=== PATIENT | male | born 1970 | race Caucasian/White ===

== ENCOUNTER 2020-03-06 06:58 | Outpatient (CLI) | payer OTHER, SELFPAY ==
[2020-03-06 07:25] LABS: Potassium 4.4 mmol/L (3.4-5.0)
[2020-03-06 07:36] LABS: Alanine Aminotransferase 52 U/L (4-50); Albumin Level 4.8 g/dL (3.5-5.1); Alkaline Phosphatase 59 U/L (38-126); Aspartate Amino Transferase 35 U/L (17-59); Blood Urea Nitrogen 20 mg/dL (9-20); Carbon Dioxide 29 mmol/L (22-30); Chloride 98 mmol/L (98-107); Estimated Glomerular Filt Rate > 60; Glucose 106 mg/dL (75-110); Sodium 134 mmol/L (137-145)
== END 2020-03-06 06:59 | disposition home or self-care (01) ==
PROVIDERS: PCP Family Medicine; Visit Provider Family Medicine
DX: I10 Essential (primary) hypertension (principal)
CPT/HCPCS: 36415; 80053

== ENCOUNTER 2020-07-12 23:54 | Observation (INO) | payer OTHER, SELFPAY ==
--- NOTE | ~2020-07-12 | XR_ITS ---
EXAMINATION: XR chest 2V DATE: 07/13/2020 03:11 INDICATION: Left chest pain. TECHNIQUE: Frontal and lateral views of the chest were obtained. COMPARISON: None. FINDINGS: The chest demonstrates clear lungs without pneumonia, pleural effusion, or pneumothorax. Th e heart size is normal. There is mild chronic anterior wedging of a midthoracic vertebral body. IMPRESSION: 1. No acute cardiopulmonary disease. Reviewed, dictated and finalized at location A. OPERATOR
[2020-07-12 23:58] VITALS: BP 186/86; PULSE 92; RESP 18; TEMP 36.7; O2SAT 100
[2020-07-13] VITALS (23 sets, daily range): BP systolic 124–175; BP diastolic 75–103; PULSE 63–90; RESP 12–24; TEMP 36.6–36.7; O2SAT 96–100
--- NOTE | 2020-07-13 00:02 | ECG_ITS ---
Measurements Intervals [place] Rate: 93 P: 50 NE: 160 QRS: 70 QRSD: 113 T: 7 QT: 343 QTc: 427 Interpretive Statements SINUS RHYTHM BORDERLINE ST-T WAVE ABNORMALITY- INFERIOR LEADS BORDERLINE ECG Electronically Signed On 07-13-2020 8:27:47 [employer] by Alphonso Serna D.O.
[2020-07-13 00:23] LABS: Basophils Absolute Auto 0.1 K/mm3 (0.0-0.1); Basophils Percent Auto 0.8 % (0.2-1.2); Eosinophils Absolute Auto 0.2 K/mm3 (0-0.3); Eosinophils Percent Auto 3.1 % (0-4.4); Hematocrit 45.2 % (42.0-52.0); Hemoglobin 16.5 g/dL (14.0-18.0); Immature Granulocyte Absolute 0.01 K/mm3 (0.00-0.031); Immature Granulocyte Percent A 0.1 % (0-0.5); Lymphocytes Absolute Auto 2.77 K/mm3 (0.9-3.2); Mean Corpuscular HGB Conc 36.5 g/dl (32-36); Mean Corpuscular Hemoglobin 31.9 pg (26-34); Mean Corpuscular Volume 87.4 fl (80-100); Mean Platelet Volume 10.3 fl (7.4-10.4); Monocytes Absolute Auto 0.7 K/mm3 (0.1-0.6); Monocytes Percent Auto 8.7 % (2.6-8.5); Neutrophils Absolute Auto 3.9 K/mm3 (1.3-6.7); Neutrophils Percent Auto 51.3 % (45.5-73.1); Platelet Count Result 216 k/mm3 (150-375); Red Blood Count 5.17 M/mm3 (4.6-6.20); Red Cell Distribution Width 11.6 % (11.5-14.5); White Blood Count 7.7 K/mm3 (4.5-10.0)
[2020-07-13 00:34] LABS: Anion Gap 11 mmol/L (8-16); Blood Urea Nitrogen 18 mg/dL (9-20); Carbon Dioxide 27 mmol/L (22-30); Chloride 101 mmol/L (98-107); Estimated CRCL calculation 74 ml/min; Estimated Glomerular Filt Rate > 60; Glucose 120 mg/dL (75-110); Sodium 139 mmol/L (137-145)
[2020-07-13 00:46] LABS: Troponin I < 0.012 ng/mL (0.000-0.034)
[2020-07-13 00:50] LABS: INR 0.9; Prothrombin Time 13.1 Seconds (11.1-14.7)
[2020-07-13] MEDS: ASPIRIN 81 MG CHEWABLE TABLET 324 MG PO (02:50)
--- NOTE | 2020-07-13 03:27 | ED.CHESTPAIN ---
HPI - Chest Pain General Chief Complaint: Chest Pain Stated Complaint: chest pain Time Seen by Provider: 07/13/20 02:55 Source: patient Mode of arrival: ambulatory Limitations: no limitations History of Present Illness HPI narrative: This patient is a 50 year old male with history of hypertension and family history of CAD who presents for evaluation of left chest pain. He developed left chest pain last night. His pain has gradually gotten worse. He reported it radiated to his neck and he has associated nausea. He denies sob, cough or fever. He had a stress test performed last due to not feeling right and hypertensive after working out last week. He wasn't having chest pain at that time of his work out. Related Data Home Medications Medication Instructions Recorded Confirmed fluticasone propionate 50 2 spray NASAL DAILY 09/19/19 07/06/20 mcg/actuation nasal spray,suspension loratadine 10 mg tablet 10 mg PO DAILY 09/19/19 07/06/20 mometasone 0.1 % topical cream 1 applic TOPICAL DAILY 09/19/19 07/06/20 Allergies Allergy/AdvReac Type Severity Reaction Status Date / Time No Known Allergies Allergy Unverified 03/27/20 08:03 Review of Systems Review of Systems: All systems reviewed & are unremarkable except as noted in HPI and below Constitutional: Constitutional: Denies chills and Denies fever(s) Cardiovascular: Cardiovascular: Reports chest pain Respiratory: Respiratory: Denies cough and Reports dyspnea Gastrointestinal: Gastrointestinal: Denies abdominal pain, Reports nausea and Denies vomiting [facility] Family History Family History (Updated 03/25/16 @ 23:19 by DOCTOR UNKNOWN) Father Hypertension Family history of diabetes mellitus in first degree relative Mother Hypertension Family history of diabetes mellitus in first degree relative Family history of coronary artery disease Social History Social History (Updated 07/06/20 @ 15:10 by Tami Collins [facility]) Smoking status: Never smoker Second hand tobacco smoke exposure: No Alcohol intake: never Substance use: never Substance use type: does not use Gender identity (if verbalized by the patient): Male Exam Const: General: no acute distress and alert Orientation/consciousness: patient oriented x3 HENMT: Head: atraumatic Face and sinus: face symmetric Neck: Neck: no lymphadenopathy Chest: Chest palpation & inspection: normal inspection of the chest Resp: Effort & Inspection: normal respiratory effort and no retractions Auscultation: clear to auscultation bilaterally Cardio: Rate: regular rate Rhythm: regular rhythm Heart sounds: no murmurs GI: GI Palp: Yes Soft to palpation, No Tenderness to palpation present (GI), No Guarding due to palpation present (GI) and No Rigid due to palpation Auscultation: normal bowel sounds Skin: General skin exam: normal color Rashes: no rashes Neuro: General: patient oriented x3 and moves all extremities Extrem: General: normal to inspection Psych: Mental Status: mental status grossly normal Affect: normal affect Course Reevaluation(s) Reevaluation #1: Patient states his chest pain resolved after 2 nitro. He is agreeable to stay in hospital in chest pain center Date: 07/13/20 Time: 04:38 Consultations Consultation #1: I spoke with Dr. Greer and she recommends patient be admitted to chest pain center. Date: 07/13/20 Time: 04:39 Vital Signs Vital signs: Vital Signs Temperature 98.1 F 07/12/20 23:58 Pulse Rate 92 07/12/20 23:58 Respiratory Rate 18 07/12/20 23:58 Blood Pressure 186/86 H 07/12/20 23:58 Pulse Oximetry 100 07/12/20 23:58 Temperature 98.1 F 07/13/20 06:43 Pulse Rate 74 07/13/20 06:50 Respiratory Rate 15 07/13/20 06:43 Blood Pressure 146/96 H 07/13/20 06:43 Pulse Oximetry 100 07/13/20 06:43 MDM - Chest Pain Lab Data Attestation: I reviewed the patient's lab results. Result diagrams: 07/13/20 00:06
[2020-07-13] MEDS: NITROGLYCERIN SL 0.4 MG TABLET SUBLINGUAL (03:33)
[2020-07-13 03:47] LABS: D Dimer 0.44 ug/mL (<0.48)
[2020-07-13 04:08] LABS: Troponin I < 0.012 ng/mL (0.000-0.034)
[2020-07-13 07:06] LABS: Troponin I < 0.012 ng/mL (0.000-0.034)
--- NOTE | 2020-07-13 09:01 | PM.IMHP ---
H&P: HPI History of Present Illness Date/Time: 07/13/20 09:01 Chief complaint: chest pain Narrative: Jamison Luna is a 50 year old male with a history of intermittent chest pain admitted last evening from the emergency room to the chest Pain Center. This is a gentleman who has no previous history of coronary artery disease but does have a longstanding history of hypertension. He is managed by his PCP, Dr. Pastrana. He states that he noticed episodes intermittent chest pain for about 6 weeks or so now. He had will have episodes of substernal tightness that seems to come and go largely in a non predictable fashion he does however have some occasional episodes of this that occur with exertion. He is an active gentleman who exercises regularly for fitness and attends space spinning classes and likes to ride his bicycle for exercise. He noticed in May that his ability to sustain activity and his spinning class declined deferred the reasons of generalized weakness shortness of breath and on at least a couple of occasions with some substernal chest tightness. His PCP referred him to a outpatient exercise stress test last week which was just done on 07/06/2020. The stress test was electrocardiographically negative. The stress test was done without any imaging. His resting 12 lead ECG appears to be normal. After being seen in the emergency room yesterday his symptoms were alleviated with nitro lingual tablets. His troponins have remained negative x3 sets. He does have a family history of prevalent ischemic heart disease. Review of Systems Constitutional: Constitutional: Reports no additional constitutional complaints Eyes: Eyes: Reports no additional eye complaints ENT: Reports system reviewed and no additional complaints, except as documented Cardiovascular: Cardiovascular: Reports as per HPI Respiratory: Respiratory: Reports as per HPI Gastrointestinal: Gastrointestinal: Reports no additional gastrointestinal complaints Musculoskeletal: Musculoskeletal: Reports no additional musculoskeletal complaints Integumentary/Breasts: Skin/Breast: Reports system reviewed and no additional complaints, except as docu Psychiatric: Psychiatric: Reports no additional psychiatric complaints [facility] Family History Family History (Updated 03/25/16 @ 23:19 by DOCTOR UNKNOWN) Father Hypertension Family history of diabetes mellitus in first degree relative Mother Hypertension Family history of diabetes mellitus in first degree relative Family history of coronary artery disease Social History Social History (Updated 07/06/20 @ 15:10 by Tami Collins [facility]) Smoking status: Never smoker Second hand tobacco smoke exposure: No Alcohol intake: never Substance use: never Substance use type: does not use Gender identity (if verbalized by the patient): Male Meds Home Medications and Allergies Home Medications Medication Instructions Recorded Confirmed Type fluticasone propionate 50 2 spray NASAL DAILY 09/19/19 07/06/20 History mcg/actuation nasal spray,suspension loratadine 10 mg tablet 10 mg PO DAILY 09/19/19 07/06/20 History mometasone 0.1 % topical cream 1 applic TOPICAL DAILY 09/19/19 07/06/20 History albuterol sulfate 90 mcg/actuation 1 puff INHALATION Q4H PRN #6.7 g 06/29/20 07/06/20 Rx aerosol inhaler lisinopril 10 mg tablet 10 mg PO DAILY #90 tablet 06/29/20 07/06/20 Rx Allergies Allergy/AdvReac Type Severity Reaction Status Date / Time No Known Allergies Allergy Unverified 03/27/20 08:03 Vital Signs Vital Signs - 24 hr 07/12/20 23:58 07/13/20 01:55 07/13/20 02:49 Temperature 36.7 C Pulse Rate 92 80 88 Respiratory Rate 18 18 14 Blood Pressure 186/86 H 175/79 H 170/101 H Pulse Oximetry 100 100 99 07/13/20 02:50 07/13/20 03:30 07/13/20 03:38 Temperature Pulse Rate 82 86 90 Respiratory Rate 16 12 18 Blood Pressure 144/95 H 143/95 H Pulse Oximetry 100 98 96 11
--- NOTE | 2020-07-13 09:13 | WPDMODSED ---
Moderate Sedation Note-Pt Data Patient Data Diagnosis: Intermittent chest pain with features both typical and atypical of angina Recent decline in exertional capability Stress electrocardiogram as an outpatient recently which was unremarkable Present Complaint: 50-year-old patient who is hypertensive and enjoying a high state of fitness. He has noticed a recent decline in his ability to exert and exercise for fitness also and history of intermittent chest pain. Admitted to the chest Pain Center after being seen in the emergency room yesterday evening with nitrate responsive chest pain. His biomarkers are negative x3 sets. In this setting and angiogram has been recommended to clarify his coronary anatomy. He does have a family history of prevalent ischemic heart disease Allergies Allergy/AdvReac Type Severity Reaction Status Date / Time No Known Allergies Allergy Unverified 03/27/20 08:03 Home Medications Medication Instructions Recorded Confirmed Type fluticasone propionate 50 2 spray NASAL DAILY 09/19/19 07/06/20 History mcg/actuation nasal spray,suspension loratadine 10 mg tablet 10 mg PO DAILY 09/19/19 07/06/20 History mometasone 0.1 % topical cream 1 applic TOPICAL DAILY 09/19/19 07/06/20 History albuterol sulfate 90 mcg/actuation 1 puff INHALATION Q4H PRN #6.7 g 06/29/20 07/06/20 Rx aerosol inhaler lisinopril 10 mg tablet 10 mg PO DAILY #90 tablet 06/29/20 07/06/20 Rx Current Medications: Active Medications Acetaminophen (Ofirmev 1,000 Mg Ivpb) 1,000 mg in 100 mls @ 400 mls/hr IVPB Q6H PRN PRN Reason: Mild Pain (1-3) or Fever Stop: 07/14/20 04:42 Morphine Sulfate (Morphine Sulfate (*Crx) 4 Mg/Ml Inj) 4 mg IV PUSH Q2H PRN PRN Reason: Pain Rated 7-10 Nitroglycerin (Nitroglycerin Sl 0.4 Mg Tablet) 0.4 mg SUBLINGUAL Q5MIN PRN PRN Reason: Chest Pain Ondansetron HCl (Ondansetron Inj 4 Mg/2 Ml Vial) 4 mg IV PUSH Q4H PRN PRN Reason: Nausea Sedation/Anesthesia: No previous sedation/anesthesia problems (including family history). [facility] Family History Family History (Updated 03/25/16 @ 23:19 by DOCTOR UNKNOWN) Father Hypertension Family history of diabetes mellitus in first degree relative Mother Hypertension Family history of diabetes mellitus in first degree relative Family history of coronary artery disease Social History Social History (Updated 07/06/20 @ 15:10 by Tami Collins CMA) Smoking status: Never smoker Second hand tobacco smoke exposure: No Alcohol intake: never Substance use: never Substance use type: does not use Gender identity (if verbalized by the patient): Male Mod Sed Physical Exam Physical Exam Pre Procedural Exam: Normal: Appearance, Neck, Throat, Airway, Lungs, Heart Size, Heart Rate, Heart Rhythm, Neuro Exam and Extremities Hours since solid foods: 12 Hours since liquid intake: 12 Internal Medicine - PN: Obj Da Vital Signs Vital Signs: Vital Signs - 24 hr 07/12/20 23:58 07/13/20 01:55 07/13/20 02:49 Temperature 36.7 C Pulse Rate 92 80 88 Respiratory Rate 18 18 14 Blood Pressure 186/86 H 175/79 H 170/101 H Pulse Oximetry 100 100 99 07/13/20 02:50 07/13/20 03:30 07/13/20 03:38 Temperature Pulse Rate 82 86 90 Respiratory Rate 16 12 18 Blood Pressure 144/95 H 143/95 H Pulse Oximetry 100 98 96 07/13/20 03:45 07/13/20 04:07 07/13/20 04:15 Temperature Pulse Rate 88 74 70 Respiratory Rate 20 21 H 20 Blood Pressure 130/80 Pulse Oximetry 97 97 98 07/13/20 04:16 07/13/20 04:30 07/13/20 04:45 Temperature Pulse Rate 74 63 72 Respiratory Rate 24 H 21 H 17 Blood Pressure 124/84 Pulse Oximetry 99 99 98 07/13/20 05:58 07/13/20 06:43 07/13/20 06:50 Temperature 36.7 C Pulse Rate 77 86 74 Respiratory Rate 22 H 15 Blood Pressure 142/91 H 146/96 H Pulse Oximetry 99 100 07/13/20 08:00 Temperature Pulse Rate 74 Respiratory Rate 15 Blood Pressure Pulse Oximetry 100 Meds/Results Medicati
--- NOTE | 2020-07-13 11:04 | P.PCNCC_ITS ---
Cardiac Cath Procedure Note Date of procedure:: 07/13/20 Performing physician:: José Miguel Booker MD Indication:: intermittent chest pain Brief clinical history:: this is a 50-year-old patient with no previous known history of coronary artery disease. He has been having an intermittent episodes of chest pain for approximately 6 weeks. Most of this is occurring in a unpredictable fashion. He has had some exertional symptoms with sustained bike riding and spinning classes. Came into the emergency room last evening with an episode of symptoms like this which were nitrate responsive. His electrocardiogram and biomarkers are normal. Stress testing performed as an outpatient recently was also negative. Procedure Procedure performed:: Left heart catheterization with coronary angiography and left ventriculography Angio-Seal to right femoral artery Sedation/Medication given:: fentanyl 50 mg Versed 2 mg case start time 10:44 a.m. case end time 11:01 a.m. sedation provided by Amber Zapata RN, trained observer Access site:: right femoral artery Estimated blood loss:: 10-15 cc Procedure note:: patient was brought to the cardiac catheterization lab in the postabsorptive state the right femoral triangle was prepared in the usual sterile fashion. Anesthesia was provided with 1% lidocaine infiltrated locally. Using the modified Seldinger technique the right common femoral artery was punctured and a 5 American vascular sheath was placed. Left heart catheterization was then carried out using a 5 American angled pigtail catheter for left ventriculography at the document left-sided hemodynamics. After this the pigtail catheter was withdrawn. A 5 American FL4 catheter was then used to engage inject the left coronary artery. A 5 American JR4 catheter was used to engage inject the right coronary artery. Following this a femoral angiogram was performed through the sheath after which a 6 American Angio-Seal device was d eployed at the site of the arterial puncture with a good hemostatic result. The procedure was well tolerated and uncomplicated. He left the medical lab tech instructor with no evidence of a groin hematoma. Findings:: Hemodynamics: Central aortic pressure is 132/74 left ventricle 130/0 end-diastolic of 7. No gradient across the aortic valve stents seen upon pullback. left ventricle: The LV is of normal size all segments contract properly there are no regional wall motion abnormalities the global ejection fraction is 55% by visual estimation the left main coronary artery is widely patent the LAD is a large caliber artery extending down to around the apex supplying the apical and mid inferior wall as well. The LAD has minimal luminal irregular ities in the proximal half but no significant stenosis is identified. Circumflex is a large caliber vessel which is dominant to the posterior circulation. The circumflex is marginal and posterior branches are angiographically free of disease right coronary artery is small to medium in caliber and non dominant giving rise to RV branches. This right coronary artery is angiographically free of disease Conclusion:: 1. left coronary dominant circulation with no significant coronary artery disease 2. normal left ventricular systolic function 3. non ischemic chest pain syndrome José Miguel Booker MD [facility]
== END 2020-07-13 15:30 | disposition home or self-care (01) ==
LOC: ANHED 07-13 05:07 → ANHCPC 07-13 05:34
PROVIDERS: Specialist; Admitting Provider Internal Medicine Cardiovascular Disease; Emergency Provider General Practice; PCP Family Medicine; Visit Provider Internal Medicine Cardiovascular Disease
PROC: 4A023N7 Measurement of Cardiac Sampling and Pressure, Left Heart, Percutaneous Approach (ICD-10-PCS; CPT 93452; principal; 2020-07-13 10:00)
DX: R07.9 Chest pain, unspecified (principal); R07.89 Other chest pain; I10 Essential (primary) hypertension; Z82.49 Family history of ischemic heart disease and other diseases of the circulatory system
CPT/HCPCS: 36415; 71046; 80048; 84484; 85025; 85380; 85610; 85730; 93005; 93458; 99285; A9270; C1760; C1887; C1894; G0269; G0378; J1644; J2250; J3010; J7040

== ENCOUNTER 2020-08-26 06:52 | Outpatient (CLI) | payer OTHER, SELFPAY ==
[2020-08-26 07:18] LABS: Hematocrit 42.1 % (42.0-52.0); Hemoglobin 15.2 g/dL (14.0-18.0); Mean Corpuscular HGB Conc 36.1 g/dl (32-36); Mean Corpuscular Hemoglobin 32.3 pg (26-34); Mean Corpuscular Volume 89.6 fl (80-100); Mean Platelet Volume 9.8 fl (7.4-10.4); Platelet Count Result 182 k/mm3 (150-375); Red Cell Distribution Width 11.9 % (11.5-14.5); White Blood Count 6.6 K/mm3 (4.5-10.0)
[2020-08-26 07:23] LABS: Add Urine Microscopic? YES; Appearance Urine Clear (Clear); Bilirubin Urine Negative (Negative); Blood Urine Negative (Negative); Color Urine Yellow (Yellow); Glucose Urine UA Negative (Negative); Ketones Urine Negative (Negative); Leukocyte Esterase Ur Negative LEU/UL (NEGATIVE); Mucus Urine Rare /lpf; Nitrate Urine Negative (Negative); Protein Urine 1+ mg/dL (Negative); RBC Urine 0-2 /hpf (0-2); Specific Grav Ur 1.021 (1.001-1.035); Urobilinogen Urine Negative mg/dL (<2.0); WBC Urine 0-3 /hpf (0-3)
[2020-08-26 07:31] LABS: Alanine Aminotransferase 56 U/L (4-50); Albumin Level 4.1 g/dL (3.5-5.1); Alkaline Phosphatase 51 U/L (38-126); Anion Gap 6 mmol/L (8-16); Aspartate Amino Transferase 38 U/L (17-59); Bilirubin,Total 0.7 mg/dL (0.2-1.3); Blood Urea Nitrogen 18 mg/dL (9-20); Calcium 8.8 mg/dL (8.4-10.2); Carbon Dioxide 28 mmol/L (22-30); Chloride 102 mmol/L (98-107); Cholesterol 177 mg/dL (0-200); Estimated Glomerular Filt Rate > 60; Glucose 104 mg/dL (75-110); HDL Direct 48 mg/dL; Potassium 4.3 mmol/L (3.4-5.0); Sodium 136 mmol/L (137-145); Triglycerides 50 mg/dL (<150)
[2020-08-26 07:44] LABS: LDL Cholesterol Direct 123 mg/dL
[2020-08-26 08:03] LABS: Prostate Specific Antigen 1.1 ng/mL (< OR = 4.0)
== END 2020-08-26 06:53 | disposition home or self-care (01) ==
PROVIDERS: PCP Family Medicine; Visit Provider Family Medicine
DX: Z51.81 Encounter for therapeutic drug level monitoring (principal); I10 Essential (primary) hypertension; Z79.899 Other long term (current) drug therapy; Z00.00 Encounter for general adult medical examination without abnormal findings
CPT/HCPCS: 36415; 80053; 80061; 81001; 84153; 84443; 85027

== ENCOUNTER 2021-03-05 06:44 | Outpatient (CLI) | payer OTHER, SELFPAY ==
[2021-03-05 07:42] LABS: Hemoglobin A1C 5.6 % (<5.7)
[2021-03-05 07:50] LABS: Alanine Aminotransferase 33 U/L (4-50); Albumin Level 4.5 g/dL (3.5-5.1); Alkaline Phosphatase 55 U/L (38-126); Anion Gap 9 mmol/L (8-16); Aspartate Amino Transferase 33 U/L (17-59); Bilirubin,Total 0.9 mg/dL (0.2-1.3); Blood Urea Nitrogen 19 mg/dL (9-20); Calcium 9.2 mg/dL (8.4-10.2); Carbon Dioxide 25 mmol/L (22-30); Chloride 103 mmol/L (98-107); Estimated Glomerular Filt Rate > 60; Glucose 105 mg/dL (75-110); Potassium 4.3 mmol/L (3.4-5.0); Sodium 137 mmol/L (137-145)
== END 2021-03-05 06:45 | disposition home or self-care (01) ==
LOC: ANHLAB 06:46
PROVIDERS: PCP Family Medicine; Visit Provider Physician Assistant
DX: R73.01 Impaired fasting glucose (principal); I10 Essential (primary) hypertension
CPT/HCPCS: 36415; 80053; 83036

== ENCOUNTER 2021-08-27 06:41 | Outpatient (CLI) | payer OTHER, SELFPAY ==
[2021-08-27 07:14] LABS: Basophils Absolute Auto 0.1 K/mm3 (0.0-0.1); Eosinophils Absolute Auto 0.3 K/mm3 (0-0.3); Eosinophils Percent Auto 4.2 % (0-4.4); Hematocrit 44.3 % (42.0-52.0); Immature Granulocyte Absolute 0.01 K/mm3 (0.00-0.031); Immature Granulocyte Percent A 0.1 % (0-0.5); Lymphocytes Percent Auto 38.1 % (18.3-44.2); Mean Corpuscular HGB Conc 36.1 g/dl (32-36); Mean Corpuscular Hemoglobin 32.1 pg (26-34); Mean Corpuscular Volume 88.8 fl (80-100); Monocytes Absolute Auto 0.7 K/mm3 (0.1-0.6); Monocytes Percent Auto 10.4 % (2.6-8.5); Neutrophils Absolute Auto 3.2 K/mm3 (1.3-6.7); Neutrophils Percent Auto 46.2 % (45.5-73.1); Platelet Count Result 198 k/mm3 (150-375); Red Blood Count 4.99 M/mm3 (4.6-6.20); White Blood Count 6.8 K/mm3 (4.5-10.0)
[2021-08-27 07:27] LABS: Alanine Aminotransferase 61 U/L (4-50); Albumin Level 4.5 g/dL (3.5-5.1); Alkaline Phosphatase 58 U/L (38-126); Anion Gap 7 mmol/L (8-16); Aspartate Amino Transferase 35 U/L (17-59); Bilirubin,Total 0.7 mg/dL (0.2-1.3); Blood Urea Nitrogen 17 mg/dL (9-20); Calcium 8.8 mg/dL (8.4-10.2); Carbon Dioxide 26 mmol/L (22-30); Chloride 103 mmol/L (98-107); Cholesterol 200 mg/dL (0-200); Estimated Glomerular Filt Rate > 60; Glucose 114 mg/dL (65-110); HDL Direct 51 mg/dL; Potassium 4.4 mmol/L (3.4-5.0); Sodium 136 mmol/L (137-145); Triglycerides 72 mg/dL (<150)
[2021-08-27 07:32] LABS: Hemoglobin A1C 5.8 % (<5.7)
[2021-08-27 07:38] LABS: LDL Cholesterol Direct 133 mg/dL
[2021-08-27 07:39] LABS: Add Urine Microscopic? NO; Appearance Urine Clear (Clear); Bilirubin Urine Negative (Negative); Blood Urine Negative (Negative); Color Urine Yellow (Yellow); Glucose Urine UA Negative (Negative); Ketones Urine Negative (Negative); Leukocyte Esterase Ur Negative LEU/UL (NEGATIVE); Nitrate Urine Negative (Negative); Protein Urine Negative (Negative); Specific Grav Ur 1.023 (1.001-1.035); Urobilinogen Urine Negative mg/dL (<2.0)
[2021-08-27 07:56] LABS: Prostate Specific Antigen 1.6 ng/mL (< OR = 4.0)
== END 2021-08-27 06:42 | disposition home or self-care (01) ==
PROVIDERS: PCP Family Medicine; Visit Provider Physician Assistant
DX: R73.01 Impaired fasting glucose (principal); I10 Essential (primary) hypertension; Z00.00 Encounter for general adult medical examination without abnormal findings
CPT/HCPCS: 36415; 80053; 80061; 81003; 83036; 84153; 84443; 85025

== ENCOUNTER 2022-02-25 06:40 | Outpatient (CLI) | payer OTHER, SELFPAY ==
[2022-02-25 08:03] LABS: Alanine Aminotransferase 38 U/L (6-50); Albumin Level 4.7 g/dL (3.5-5.1); Alkaline Phosphatase 69 U/L (38-126); Anion Gap 5 mmol/L (8-16); Aspartate Amino Transferase 28 U/L (17-59); Bilirubin,Total 0.5 mg/dL (0.2-1.3); Blood Urea Nitrogen 15 mg/dL (9-20); Calcium 8.7 mg/dL (8.4-10.2); Carbon Dioxide 27 mmol/L (22-30); Chloride 106 mmol/L (98-107); Estimated Glomerular Filt Rate > 60; Glucose 103 mg/dL (65-110); Potassium 4.3 mmol/L (3.4-5.0); Sodium 138 mmol/L (137-145)
[2022-02-25 08:06] LABS: Hemoglobin A1C 5.4 % (<5.7)
== END 2022-02-25 06:41 | disposition home or self-care (01) ==
LOC: ANHLAB 06:46
PROVIDERS: PCP Family Medicine; Visit Provider Family Medicine
DX: R73.01 Impaired fasting glucose (principal); I10 Essential (primary) hypertension
CPT/HCPCS: 36415; 80053; 83036

== ENCOUNTER 2022-08-25 06:48 | Outpatient (CLI) | payer OTHER, SELFPAY ==
[2022-08-25 07:31] LABS: Alanine Aminotransferase 53 U/L (6-50); Albumin Level 4.4 g/dL (3.5-5.1); Alkaline Phosphatase 59 U/L (38-126); Anion Gap 7 mmol/L (8-16); Aspartate Amino Transferase 35 U/L (17-59); Bilirubin,Total 0.6 mg/dL (0.2-1.3); Blood Urea Nitrogen 13 mg/dL (9-20); Calcium 8.6 mg/dL (8.4-10.2); Carbon Dioxide 28 mmol/L (22-30); Chloride 104 mmol/L (98-107); Cholesterol 180 mg/dL (0-200); Estimated Glomerular Filt Rate > 60; Glucose 108 mg/dL (65-110); HDL Direct 42 mg/dL; Potassium 4.4 mmol/L (3.4-5.0); Sodium 139 mmol/L (137-145); Triglycerides 72 mg/dL (<150)
[2022-08-25 07:34] LABS: Basophils Percent Auto 0.7 % (0.2-1.2); Eosinophils Absolute Auto 0.2 K/mm3 (0-0.3); Hematocrit 42.5 % (42.0-52.0); Hemoglobin 15.2 g/dL (14.0-18.0); Immature Granulocyte Absolute 0.01 K/mm3 (0.00-0.031); Immature Granulocyte Percent A 0.2 % (0-0.5); Lymphocytes Absolute Auto 2.15 K/mm3 (0.9-3.2); Lymphocytes Percent Auto 48.2 % (18.3-44.2); Mean Corpuscular HGB Conc 35.8 g/dl (32-36); Mean Corpuscular Hemoglobin 31.4 pg (26-34); Mean Corpuscular Volume 87.8 fl (80-100); Mean Platelet Volume 10.2 fl (7.4-10.4); Monocytes Absolute Auto 0.6 K/mm3 (0.1-0.6); Monocytes Percent Auto 13.7 % (2.6-8.5); Neutrophils Absolute Auto 1.5 K/mm3 (1.3-6.7); Neutrophils Percent Auto 33.2 % (45.5-73.1); Platelet Count Result 181 k/mm3 (150-375); Red Blood Count 4.84 M/mm3 (4.6-6.20); Red Cell Distribution Width 11.7 % (11.5-14.5); White Blood Count 4.5 K/mm3 (4.5-10.0)
[2022-08-25 07:37] LABS: Hemoglobin A1C 5.9 % (<5.7)
[2022-08-25 07:42] LABS: LDL Cholesterol Direct 111 mg/dL
[2022-08-25 08:02] LABS: Prostate Specific Antigen 1.9 ng/mL (< OR = 4.0)
[2022-08-25 09:52] LABS: Add Urine Microscopic? NO; Appearance Urine Clear (Clear); Bilirubin Urine Negative (Negative); Blood Urine Negative (Negative); Color Urine Light Yellow (Yellow); Glucose Urine UA Negative (Negative); Ketones Urine Negative (Negative); Leukocyte Esterase Ur Negative LEU/UL (NEGATIVE); Nitrate Urine Negative (Negative); Protein Urine Negative (Negative); Urobilinogen Urine 0.2 mg/dL (<2.0)
== END 2022-08-25 06:49 | disposition home or self-care (01) ==
LOC: ANHLAB 06:49
PROVIDERS: PCP Family Medicine; Visit Provider Physician Assistant
DX: Z00.00 Encounter for general adult medical examination without abnormal findings (principal); E78.5 Hyperlipidemia, unspecified; R73.01 Impaired fasting glucose; I10 Essential (primary) hypertension; R35.1 Nocturia
CPT/HCPCS: 36415; 80053; 80061; 81003; 83036; 84153; 84443; 85025

== ENCOUNTER 2023-01-20 06:38 | Outpatient (CLI) | payer OTHER, SELFPAY ==
[2023-01-20 07:20] LABS: Alanine Aminotransferase 42 U/L (6-50); Albumin Level 4.3 g/dL (3.5-5.1); Alkaline Phosphatase 62 U/L (38-126); Anion Gap 6 mmol/L (8-16); Aspartate Amino Transferase 32 U/L (17-59); Bilirubin,Total 0.7 mg/dL (0.2-1.3); Blood Urea Nitrogen 14 mg/dL (9-20); Carbon Dioxide 30 mmol/L (22-30); Chloride 102 mmol/L (98-107); Cholesterol 184 mg/dL (0-200); Estimated Glomerular Filt Rate > 60; Glucose 102 mg/dL (65-110); HDL Direct 48 mg/dL; Potassium 4.4 mmol/L (3.4-5.0); Sodium 138 mmol/L (137-145); Triglycerides 70 mg/dL (<150)
[2023-01-20 07:30] LABS: LDL Cholesterol Direct 119 mg/dL
[2023-01-20 09:02] LABS: Hemoglobin A1C 5.5 % (<5.7)
== END 2023-01-20 06:39 | disposition home or self-care (01) ==
LOC: ANHLAB 06:39
PROVIDERS: PCP Family Medicine; Visit Provider Physician Assistant
DX: R73.01 Impaired fasting glucose (principal); E78.5 Hyperlipidemia, unspecified; I10 Essential (primary) hypertension
CPT/HCPCS: 36415; 80053; 80061; 83036

== ENCOUNTER 2023-09-08 06:42 | Outpatient (CLI) | payer OTHER, SELFPAY ==
[2023-09-08 07:28] LABS: Basophils Absolute Auto 0.1 K/mm3 (0.0-0.1); Eosinophils Absolute Auto 0.4 K/mm3 (0-0.3); Eosinophils Percent Auto 5.8 % (0-4.4); Hematocrit 44.7 % (42.0-52.0); Hemoglobin 15.9 g/dL (14.0-18.0); Immature Granulocyte Absolute 0.01 K/mm3 (0.00-0.031); Immature Granulocyte Percent A 0.1 % (0-0.5); Lymphocytes Absolute Auto 2.43 K/mm3 (0.9-3.2); Mean Corpuscular HGB Conc 35.6 g/dl (32-36); Mean Corpuscular Hemoglobin 31.7 pg (26-34); Monocytes Absolute Auto 0.6 K/mm3 (0.1-0.6); Neutrophils Absolute Auto 3.2 K/mm3 (1.3-6.7); Neutrophils Percent Auto 48.1 % (45.5-73.1); Platelet Count Result 226 k/mm3 (150-375); Red Blood Count 5.02 M/mm3 (4.6-6.20); Red Cell Distribution Width 12.1 % (11.5-14.5); White Blood Count 6.8 K/mm3 (4.5-10.0)
[2023-09-08 07:43] LABS: Alanine Aminotransferase 61 U/L (6-50); Albumin Level 4.4 g/dL (3.5-5.1); Alkaline Phosphatase 61 U/L (38-126); Anion Gap 10 mmol/L (8-16); Aspartate Amino Transferase 43 U/L (17-59); Bilirubin,Total 0.9 mg/dL (0.2-1.3); Blood Urea Nitrogen 20 mg/dL (9-20); Calcium 8.7 mg/dL (8.4-10.2); Carbon Dioxide 27 mmol/L (22-30); Chloride 99 mmol/L (98-107); Cholesterol 186 mg/dL (0-200); Estimated Glomerular Filt Rate > 60; Glucose 107 mg/dL (65-110); HDL Direct 43 mg/dL; Potassium 3.6 mmol/L (3.4-5.0); Sodium 136 mmol/L (137-145); Triglycerides 39 mg/dL (<150)
[2023-09-08 07:54] LABS: LDL Cholesterol Direct 124 mg/dL
[2023-09-08 08:00] LABS: Hemoglobin A1C 6.1 % (<5.7)
[2023-09-08 08:12] LABS: Prostate Specific Antigen 1.6 ng/mL (< OR = 4.0)
[2023-09-08 11:10] LABS: Add Urine Microscopic? NO; Appearance Urine Clear (Clear); Bilirubin Urine Negative (Negative); Blood Urine Negative (Negative); Color Urine Yellow (Yellow); Glucose Urine UA Negative (Negative); Ketones Urine Negative (Negative); Leukocyte Esterase Ur Negative LEU/UL (NEGATIVE); Nitrate Urine Negative (Negative); Protein Urine Negative (Negative); Specific Grav Ur 1.025 (1.001-1.035); Urobilinogen Urine 0.2 mg/dL (<2.0)
== END 2023-09-08 06:43 | disposition home or self-care (01) ==
LOC: ANHLAB 06:43
PROVIDERS: PCP Family Medicine; Visit Provider Physician Assistant
DX: Z00.00 Encounter for general adult medical examination without abnormal findings (principal); R73.01 Impaired fasting glucose; E78.5 Hyperlipidemia, unspecified; I10 Essential (primary) hypertension
CPT/HCPCS: 36415; 80053; 80061; 81003; 83036; 84153; 84443; 85025; G0103

== ENCOUNTER 2024-06-07 06:45 | Outpatient (CLI) | payer BC, SELFPAY ==
[2024-06-07 07:39] LABS: Alanine Aminotransferase 30 U/L (6-50); Albumin Level 4.6 g/dL (3.5-5.1); Alkaline Phosphatase 63 U/L (38-126); Anion Gap 8 mmol/L (4-12); Aspartate Amino Transferase 29 U/L (17-59); Bilirubin,Total 0.9 mg/dL (0.2-1.3); Blood Urea Nitrogen 12 mg/dL (9-20); Calcium 9.2 mg/dL (8.4-10.2); Carbon Dioxide 30 mmol/L (22-30); Chloride 97 mmol/L (98-107); Cholesterol 179 mg/dL (0-200); Estimated Glomerular Filt Rate > 60; Glucose 105 mg/dL (65-110); HDL Direct 46 mg/dL; Potassium 4.2 mmol/L (3.4-5.0); Sodium 135 mmol/L (137-145); Triglycerides 47 mg/dL (<150)
[2024-06-07 07:50] LABS: LDL Cholesterol Direct 107 mg/dL
[2024-06-07 08:00] LABS: Hemoglobin A1C 5.8 % (<5.7)
== END 2024-06-07 06:46 | disposition home or self-care (01) ==
PROVIDERS: PCP Family Medicine; Visit Provider Physician Assistant
DX: R73.01 Impaired fasting glucose (principal); E78.5 Hyperlipidemia, unspecified; I10 Essential (primary) hypertension
CPT/HCPCS: 36415; 80053; 80061; 83036

== ENCOUNTER 2024-12-27 06:35 | Outpatient (CLI) | payer BC, SELFPAY ==
--- OUTSIDE RECORDS SUMMARY | 2024-12-27 06:39 | XMS_ITS | Clinical Summary ---
Author Organization [facility] [address] Address [address] [place] [address] Care Team Providers Care Count Room Clerk Name Role Phone Scot Pastrana MD Primary Care Provider Allergies No known active allergies Medications magnesium gluconate 200 mg tabletIndicatio ns:hypomagnesem ia Take 2.5 tablets (500 mg total) by mouth daily Active lisinopriL (PRINIVIL,ZESTR IL) 20 mg tablet Take 1 tablet (20 mg total) by mouth daily 30 tablet 3 08/18/2023 Active chlorthalidone (HYGROTON) 25 mg tablet TAKE 1 TABLET BY MOUTH EVERY DAY IN THE MORNING 90 tablet 1 11/30/2023 Active Active Problems No known active problems Social History Tobacco Use Types Packs/Day Years Used Date Smoking Tobacco: Never Tobacco Cessation:Counseling Given: Not Answered Personal Safety Answer Date Recorded Getting School Help Needed Not on file 08/08 Sex and Gender Information Value Date Recorded Sex Assigned at Not on file Legal Sex Male 2:30 PM ASSISTANT CITY ATTORNEY Gender Identity Not on file Sexual Orientation Not on file Obstetrics History Last Filed Vital Signs Vital Sign Reading Time Taken Comments Blood Pressure 118/88 08/18/2023 9:19 AM ASSISTANT CITY ATTORNEY Pulse 83 08/18/2023 9:19 AM ASSISTANT CITY ATTORNEY Temperature - - Respiratory Rate - - Oxygen Saturation 96% 08/18/2023 9:19 AM ASSISTANT CITY ATTORNEY Inhaled Oxygen Concentration - - Weight 88.5 kg (195 lb) 08/18/2023 9:19 AM ASSISTANT CITY ATTORNEY Height 177.8 cm (5' 10 ) 08/18/2023 9:19 AM ASSISTANT CITY ATTORNEY Body Mass Index 27.98 08/18/2023 9:19 AM ASSISTANT CITY ATTORNEY Plan of Treatment Health Maintenance Due Date Last Done Comments Colon Cancer Screening-Colonoscopy 1970 Depression Screening 1970 Hepatitis C Screening 1970 Prostate Cancer Screening-PSA 1970 Hepatitis B Screening 01/20/1988 Regular Well Visit/Exam 18-64 01/20/1988 Zoster Vaccine (1 of 2) 01/20/2020 Influenza Vaccine (#1) 2024 0, 08/13/2019 DTaP/Tdap/Td Vaccine (3 - Td or Tdap) 08/13/2029 08/13/2019, 12/18/2012 Pneumococcal vaccine <65 Aged Out No longer eligible based on patient's age to complete this topic Insurance [employer] HMO/POS [employer] [place] [address] Care Teams Count Room Clerk Relationship Specialty Start Date End Date Scot Pastrana MD [address] [facility] [address] [place] [address] PCP - General Family Medicine 04/19/23
--- OUTSIDE RECORDS SUMMARY | 2024-12-27 06:39 | XMS_ITS | Clinical Summary ---
Author Organization [facility] Address [address] [place] [address] Care Team Providers Care Punch Press Operator Name Role Phone Scot Pastrana MD Primary Care Provider [phone] Allergies No known active allergies Social History Tobacco Use Types Packs/Day Years Used Date Smoking Tobacco: Never Assessed Sex and Gender Information Value Date Recorded Sex Assigned at Not on file Legal Sex Male 9:51 PM CDT Gender Identity Not on file Sexual Orientation Not on file Last Filed Vital Signs Vital Sign Reading Time Taken Comments Blood Pressure 165/114 06/19/2022 10:02 PM CDT Pulse 95 06/19/2022 10:02 PM CDT Temperature 36.1 C (96.9 F) 06/19/2022 10:02 PM CDT Respiratory Rate 16 06/19/2022 10:02 PM CDT Oxygen Saturation 97% 06/19/2022 10:02 PM CDT Inhaled Oxygen Concentration - - Weight 86.2 kg (190 lb) 06/19/2022 10:02 PM CDT Height 177.8 cm (5' 10 ) 06/19/2022 10:02 PM CDT Body Mass Index 27.26 06/19/2022 10:02 PM CDT Plan of Treatment Health Maintenance Due Date Last Done Comments Colorectal Cancer Screening Colonoscopy (10 Years) 1970 Annual Physical 1973 Hepatitis C 01/20/1988 Hepatitis B Vaccines (1 of 3 - 19+ 3-dose series) 1989 Pneumococcal Vaccine: 50+ Years (1 of 1 - PCV) 01/20/2020 COVID-19 Vaccine (2023-2 5 season) 2024 09/16/2021, 10/09/2020, 09/10/2020 DTaP, Tdap and Td Vaccines ( 3 - Td or Tdap) 08/13/2029 08/13/2019, 12/18/2012 Zoster Vaccines Completed 03/14/2022, 09/16/2021 Meningococcal B Vaccine Aged Out No l onger eligible based on patient's age to complete this topic Meningococcal Vaccine Aged Out No israel tommie eligible based on patient's age to complete this topic RSV Immunizations Under 20 Months Aged Out No longer eligible b ased on patient's age to complete this topic Insurance AETNA Care Teams Punch Press Operator Relationship Specialty Start Date End Date Scot Pastrana MD [address] [place], [place] [id number] PCP - General FAMILY PRACTICE 06/19/22
--- OUTSIDE RECORDS SUMMARY | 2024-12-27 06:39 | XMS_ITS | Referral Summary ---
Author Organization [facility] [address] Address [address] [place] [address] Care Team Providers Care Paste Up Artist Apprentice Name Role Phone Scot Pastrana MD Primary [...] on file Legal Sex Male 2:30 PM TELEPHONE SALES REPRESENTATIVE Gender Identity Not on file Sexual Orientation Not on file Last Filed Vital Signs Vital Sign Reading Time Taken Comments Blood Pressure 118/88 08/18/2023 9:19 AM TELEPHONE SALES REPRESENTATIVE Pulse 83 08/18/2023 9:19 AM TELEPHONE SALES REPRESENTATIVE Temperature - - Respiratory Rate - - Oxygen Saturation 96% 08/18/2023 9:19 AM TELEPHONE SALES REPRESENTATIVE Inhaled Oxygen Concentration - - Weight 88.5 kg (195 lb) 08/18/2023 9:19 AM TELEPHONE SALES REPRESENTATIVE Height 177.8 cm (5' 10 ) 08/18/2023 9:19 AM TELEPHONE SALES REPRESENTATIVE Body Mass Index 27.98 08/18/2023 9:19 AM TELEPHONE SALES REPRESENTATIVE Plan of Treatment Not on file Insurance [employer] COVENTRY HMO/POS [employer] COVENTRY HMO/POS Care Teams Paste Up Artist Apprentice Relationship Specialty Start Date End Date Scot Pastrana MD [address] [facility] [address] [place] [address] PCP - General Family Medicine 04/19/23
--- OUTSIDE RECORDS SUMMARY | 2024-12-27 06:39 | XMS_ITS | Clinical Summary ---
Author Organization [facility] [employer] Address [address] [place] [address] Care Team Providers Care Retail Representative Name Role Phone Unavailable Primary Care Provider Unavailabl e Source Comments [facility] [employer],non-owned Affiliates and Associated Physician Practices is amultiple site organization consisting of ambulatory clinics and hospital sitesin [place], [place], [place] and [place]. This disclosure is being madepursuant to the Care Everywhere program and may not contain all information available regarding this patient. Last updated 18.[facility] [employer] Allergies No known active allergies Social History Tobacco Use Types Packs/Day Years Used Date Smoking Tobacco: Never Assessed Sex and Gender Information Value Date Recorded Sex Assigned at Not on file Legal Sex Male 5:16 PM CDT Gender Identity Not on file Sexual Orientation Not on file Plan of Treatment Health Maintenance Due Date Last Done Comments COLOGUARD (AGES 45-75) - COL ON CA SCREENING 1970 COLON MONITORING 1970 COLONOSCOPY - COLON CA SCREENING 1970 CT COLONOGRAPHY - COLON CA SCREENING 1970 Colorectal Cancer Screening 1970 FIT - COLON CA SCREENING 1970 FLEX SIG - COLON CA SCREENING 1970 LIPID TESTING 1970 HIV SCREENING 1985 HEPATITIS C SCREENING 01/15/1988 DTAP/TDAP/TD VACCINES (1 - Tdap) 1989 HEPATITIS B VACCINE (1 of 3 - 19+ 3-dose series) 1989 PNEUMOCOCCAL VACCINE 50+ (1 of 1 - PCV) 01/20/2020 ZOSTER VACCINE (1 of 2) 01/20/2020 COVID-19 VACCINE ( - 2023-2 5 season) 2024 DEPRESSION SCREENING 08/28/2024 INFLUENZA VACCINE (Season Ended) 2025 07/02/2020, 08/13/2019 HIB VACCINE Aged Out No longer eligi ble based on patient's age to complete this topic HPV VACCINE Aged Out No longer eligi ble based on patient's age to complete this topic MENINGOCOCCAL (Group B) VACCINE SHARED DECISION-MAKING Aged Out No longer eligible based on patient's age to complete this topic MENINGOCOCCAL GROUPS A/C/Y/W VACCINE Aged Out No longer eligible b ased on patient's age to complete this topic Insurance [facility]
[2024-12-27 07:26] LABS: Hemoglobin 15.5 g/dL (14.0-18.0); Mean Corpuscular HGB Conc 34.4 g/dl (32-36); Mean Corpuscular Hemoglobin 31.4 pg (26-34); Mean Corpuscular Volume 91.3 fl (80-100); Mean Platelet Volume 10.7 fl (7.4-10.4); Platelet Count Result 205 k/mm3 (150-375); Red Blood Count 4.93 M/mm3 (4.6-6.20); Red Cell Distribution Width 11.9 % (11.5-14.5); White Blood Count 6.4 K/mm3 (4.5-10.0)
[2024-12-27 07:48] LABS: Alanine Aminotransferase 36 U/L (6-50); Albumin Level 4.5 g/dL (3.5-5.1); Alkaline Phosphatase 61 U/L (38-126); Anion Gap 7 mmol/L (4-12); Aspartate Amino Transferase 28 U/L (17-59); Bilirubin,Total 0.8 mg/dL (0.2-1.3); Blood Urea Nitrogen 17 mg/dL (9-20); Calcium 9.1 mg/dL (8.4-10.2); Carbon Dioxide 29 mmol/L (22-30); Chloride 100 mmol/L (98-107); Cholesterol 177 mg/dL (0-200); Estimated Glomerular Filt Rate > 60; Glucose 104 mg/dL (65-110); HDL Direct 45 mg/dL; Potassium 4.1 mmol/L (3.4-5.0); Sodium 136 mmol/L (137-145); Triglycerides 48 mg/dL (<150)
[2024-12-27 07:54] LABS: Add Urine Microscopic? NO; Appearance Urine Clear (Clear); Bilirubin Urine Negative (Negative); Blood Urine Negative (Negative); Color Urine Yellow (Yellow); Glucose Urine UA Negative (Negative); Ketones Urine Negative (Negative); Leukocyte Esterase Ur Negative LEU/UL (Negative); Nitrate Urine Negative (Negative); Protein Urine Negative (Negative); Specific Grav Ur 1.022 (1.001-1.035)
[2024-12-27 08:00] LABS: Hemoglobin A1C 5.8 % (<5.7)
[2024-12-27 08:05] LABS: LDL Cholesterol Direct 109 mg/dL
[2024-12-27 10:29] LABS: Prostate Specific Antigen 1.8 ng/mL (< OR = 4.0)
== END 2024-12-27 06:36 | disposition home or self-care (01) ==
LOC: ANHLAB 06:37
PROVIDERS: PCP Family Medicine; Visit Provider Family Medicine
DX: R35.1 Nocturia (principal); I10 Essential (primary) hypertension; R73.01 Impaired fasting glucose; E78.5 Hyperlipidemia, unspecified; Z00.00 Encounter for general adult medical examination without abnormal findings
CPT/HCPCS: 36415; 80053; 80061; 81003; 83036; 84153; 84443; 85027